=== PATIENT | male | born 1980 ===

== ENCOUNTER 2021-08-21 15:02 | Inpatient (IN) ==
[2021-08-21] MEDS ORDERED: LIDOCAINE 1%/EPI INJ 20 ML VIAL ONE (15:21)
[2021-08-21] MEDS ORDERED: HEPARIN/NACL 0.9% 2 UNITS/ML 2,000 UNIT/1,000 ML BAG IV ONE (15:21)
[2021-08-21] MEDS ORDERED: fentaNYL 100 MCG/2 ML VIAL ONE (15:22)
[2021-08-21] MEDS ORDERED: MIDAZOLAM 2 MG/2 ML VIAL ONE (15:22)
[2021-08-21] MEDS ORDERED: TIROFIBAN 5,000 MCG/100 ML PREMIX IV ONE (15:48)
[2021-08-21] MEDS ORDERED: HEPARIN 5,000 UNIT/1 ML VIAL ONE (15:52)
[2021-08-21] MEDS ORDERED: NITROGLYCERIN SL 0.4 MG TABLET SL PRN (16:24)
[2021-08-21] MEDS ORDERED: HYDROmorphone 1 MG/1 ML SYRINGE IV PRN (16:24)
[2021-08-21] MEDS ORDERED: ZALEPLON 5 MG CAPSULE PO PRN (16:24)
[2021-08-21] MEDS ORDERED: ONDANSETRON 4 MG/2 ML VIAL IV PRN (16:24)
[2021-08-21] MEDS ORDERED: SODIUM CHLORIDE 0.45% 1,000 ML IV SCH (16:30)
[2021-08-21] MEDS: TICAGRELOR 90 MG TABLET PO SCH (21:19)
[2021-08-21] MEDS: METOPROLOL TARTRATE 50 MG TABLET PO SCH (21:20)
[2021-08-21] MEDS: ATORVASTATIN 40 MG TABLET PO SCH (21:20)
[2021-08-21] MEDS: ALPRAZolam 0.25 MG TABLET PO SCH (21:20)
[2021-08-22 00:43] LABS: Basophils % 0.2 % (0.0-0.8); Eosinophils % 0.3 % (0.00-10.9); Hemoglobin 15.4 GM/DL (14.0-18.0); Immature Granulocytes % 0.4 %; Immature Granulocytes Absolute 0.06 #; Lymphocytes # 0.9 10*3/uL (1.4-4.0); Lymphocytes % 6.5 % (21.2-54.2); Mean Corpuscular HGB Conc 34.2 GM/DL (32-36); Mean Corpuscular Volume 99.6 FL (87-102); Mean Platelet Volume 11.2 FL (9.6-12.0); Monocytes % 6.6 % (1.7-12.7); Platelet Count 175 T/CUMM (130-400); Red Blood Count 4.52 MC/CUMM (3.8-5.5); Red Cell Distribution Width 12.9 % (9.3-17.3); White Blood Count 14.3 T/CUMM (4-12)
[2021-08-22 01:01] LABS: Calcium 8.5 MG/DL (8.5-10.1); Osmolality,Calculated 284.1 MOS/KG (273-304); Potassium 3.6 MMOL/L (3.5-5.1)
[2021-08-22] MEDS ORDERED: POLYETHYLENE GLYCOL POWDER 17 GM PACK PO PRN (07:39)
[2021-08-22] MEDS ORDERED: ALUMINUM/MAGNES/SIMETH MAX STR 30 ML UDCUP PO PRN (07:39)
[2021-08-22] MEDS ORDERED: DOCUSATE SODIUM 100 MG CAPSULE PO PRN (07:39)
[2021-08-22] MEDS ORDERED: hydrALAZINE 20 MG/1 ML VIAL IV PRN (07:39)
[2021-08-22] MEDS ORDERED: BISACODYL 5 MG TABLET PO PRN (07:39)
[2021-08-22] MEDS ORDERED: ZALEPLON 5 MG CAPSULE PO PRN (07:39)
[2021-08-22] MEDS ORDERED: ACETAMINOPHEN 325 MG TABLET PO PRN (07:39)
[2021-08-22] MEDS ORDERED: MAGNESIUM HYDROXIDE SUSP 30 ML UDCUP PO PRN (07:39)
[2021-08-22] MEDS ORDERED: guaiFENesin/DM ER 600-30 MG TABLET PO PRN (07:39)
[2021-08-22] MEDS ORDERED: NITROGLYCERIN SL 0.4 MG TABLET SL PRN (07:39)
[2021-08-22] MEDS ORDERED: diphenhydrAMINE CAP 25 MG CAPSULE PO PRN (07:39)
[2021-08-22] MEDS ORDERED: ONDANSETRON 4 MG/2 ML VIAL IV PRN (07:39)
[2021-08-22] MEDS: PANTOPRAZOLE 40 MG TABLET PO SCH (08:34)
[2021-08-22] MEDS: TICAGRELOR 90 MG TABLET PO SCH ×2 (08:34→20:15)
[2021-08-22] MEDS: ASPIRIN EC 81 MG TABLET PO SCH (08:34)
[2021-08-22] MEDS: METOPROLOL TARTRATE 50 MG TABLET PO SCH ×2 (08:34→20:15)
[2021-08-22] MEDS: ALPRAZolam 0.25 MG TABLET PO SCH ×3 (08:35→20:15)
[2021-08-22] MEDS: ATORVASTATIN 40 MG TABLET PO SCH (20:15)
[2021-08-23 04:04] LABS: Basophils % 0.2 % (0.0-0.8); Eosinophils % 0.4 % (0.00-10.9); Hematocrit 46.8 VOL% (42.0-52.0); Hemoglobin 15.6 GM/DL (14.0-18.0); Immature Granulocytes % 0.4 %; Immature Granulocytes Absolute 0.04 #; Lymphocytes # 0.8 10*3/uL (1.4-4.0); Mean Corpuscular HGB Conc 33.3 GM/DL (32-36); Mean Corpuscular Volume 101.1 FL (87-102); Mean Platelet Volume 11.4 FL (9.6-12.0); Monocytes % 10.3 % (1.7-12.7); Neutrophils % 80.7 % (38.7-73.9); Platelet Count 147 T/CUMM (130-400); Red Blood Count 4.63 MC/CUMM (3.8-5.5); White Blood Count 10.1 T/CUMM (4-12)
[2021-08-23 04:26] LABS: Calcium 8.7 MG/DL (8.5-10.1); Osmolality,Calculated 279.4 MOS/KG (273-304); Potassium 3.7 MMOL/L (3.5-5.1); Risk Ratio 3.63
[2021-08-23] MEDS: TICAGRELOR 90 MG TABLET PO SCH (08:40)
[2021-08-23] MEDS: METOPROLOL TARTRATE 50 MG TABLET PO SCH (08:40)
[2021-08-23] MEDS: ASPIRIN EC 81 MG TABLET PO SCH (08:40)
[2021-08-23] MEDS: PANTOPRAZOLE 40 MG TABLET PO SCH (08:40)
[2021-08-23] MEDS: ALPRAZolam 0.25 MG TABLET PO SCH (08:40)
== END 2021-08-23 11:20 | disposition home or self-care (01) | DRG 247 ==
LOC: N.CL 15:02 → N.CC 16:50
PROVIDERS: ADMIT Internal Medicine Interventional Cardiology; ATTEND Nurse Practitioner Family
PROC: CLCCHCL (ICD-10-PCS; 2021-08-21 15:45)